=== PATIENT | male | born 1980 | race Caucasian/White ===

== ENCOUNTER 2020-08-31 04:33 | Emergency (ER) | payer SELFPAY ==
[~2020-08-31] VITALS: Ht 172.7 cm; Wt 84.0 kg
[2020-08-31 04:35] VITALS: BP 189/93
== END 2020-08-31 05:07 | disposition home or self-care (01) ==
LOC: ER 04:37
DX: F15.129 Other stimulant abuse with intoxication, unspecified (principal); R03.0 Elevated blood-pressure reading, without diagnosis of hypertension
CPT/HCPCS: 99283